=== PATIENT | male | born 1970 | race Caucasian/White ===

== ENCOUNTER → 2016-11-18 | Outpatient (CLI) | payer OTHER ==
[~2016-11-18] MED LIST: ASPIRIN 32325 MG/TAB PO; ASPIRIN E.C. 8181 MG PO; CIALIS10 MG PO; CRESTOR20 MG PO; CYMBALTA 60MG60 MG PO; FISH OIL1000 MG PO; FLUOXETINE40 MG PO; GLUCOPHAGE1000 MG PO; LIPITOR 40MG TA40 MG PO; LIPOFEN150 MG PO; METFORMIN1000 MG PO; METOPROLOL SUCC50 M1 PO; NIASPAN500 MG PO; NO HOME MEDICATIONS; OMEPRAZOLE DR20 MG PO; PAROXETINE20 MG PO; PERCOCET 325 MG1 TA2 PO; RANITIDINE150 MG PO; TOPROL XL100 MG PO; ZOFRAN 4MG T4 MG/TAB PO; ZYRTEC10 MG PO
== END ==
LOC: COL.RAD 11:45 → EDBD 11:45 → COL.RAD 12:30
PROVIDERS: Psychiatry & Neurology Neurology
DX: D49.2 Neoplasm of unspecified behavior of bone, soft tissue, and skin (principal); M48.02 Spinal stenosis, cervical region; Z86.39 Personal history of other endocrine, nutritional and metabolic disease
CPT/HCPCS: A9585